=== PATIENT | male | born 1975 | race Two or more races ===

== ENCOUNTER 2021-01-29 01:59 | Emergency (ER) | payer BC ==
[2021-01-29] MEDS ORDERED: Sodium Chloride 0.9% 2.5 ML Syringe FLUSH PRN (02:11)
[2021-01-29] MEDS ORDERED: Sodium Chloride 0.9% 10 ML Syringe FLUSH PRN (02:11)
--- NOTE | 2021-01-29 02:15 | EDM.PDOC ---
ED HPI GENERAL MEDICAL PROBLEM - General Chief Complaint: Chest Pain Stated Complaint: PAIN IN RIB Time Seen by Provider: 01/29/21 02:05 - History of Present Illness INITIAL COMMENTS - FREE TEXT/NARRATIVE: 46-year-old male with a history of hypertension presents with now resolved chest pain. Patient had approximately 3 to 4 hours of tearing chest pain radiating to the back associated with diaphoresis and a sense of dread. Patient reports that he had the feeling that something bad might be happening with his family. He called his family and everybody was fine his symptoms and started to resolve. He presents now asymptomatic. He had no shortness of breath he had no abdominal pain no syncope or near syncope. He has no prior history of similar episodes. No clear exacerbating or alleviating factors the pain was substernal and radiated through to the back and was a tearing sensation. - Related Data Allergies Allergy/AdvReac Type Severity Reaction Status Date / Time No Known Allergies Allergy Verified 01/29/21 02:04 Past Medical History HEENT History: Reports: None Cardiovascular History: Reports: High Cholesterol, Hypertension Respiratory History: Reports: None Gastrointestinal History: Reports: None Genitourinary History: Reports: None Musculoskeletal History: Reports: None Neurological History: Reports: None Psychiatric History: Reports: None Endocrine/Metabolic History: Reports: None Hematologic History: Reports: None Immunologic History: Reports: None Oncologic (Cancer) History: Reports: None Dermatologic History: Reports: None - Infectious Disease History Infectious Disease History: Reports: Chicken Pox - Past Surgical History Head Surgeries/Procedures: Reports: None Social & Family History - Family History Family Medical History: No Pertinent Family History - Recreational Drug Use Recreational Drug Use: No ED ROS GENERAL - Review of Systems Review Of Systems: See Below Free Text/Narrative/Comment: General: No fever. ENT: No sore throat. Neck: No neck stiffness. Respiratory: No shortness of breath. Cardiac: Per HPI Gastrointestinal: No nausea, vomiting or abdominal pain. Musculoskeletal: No myalgias/arthralgias. Neurologic: No headache. ED EXAM, GENERAL - Physical Exam Exam: See Below Free Text/Narrative:: General Appearance: No acute distress, appears comfortable Skin: No rash HEENT: Normocephalic/atraumatic, sclera anicteric, mucous membranes moist Neck: Normal range of motion Chest and Lungs: Bilateral breath sounds, clear to auscultation Cardiovascular: Regular rate and rhythm, no murmur Abdomen: Soft, non-tender Back: Normal Musculoskeletal: No edema or tenderness Neurologic: Awake, alert, no obvious deficits, moving all extremities Psychiatric: Appropriate, cooperative #1 Interpretation EKG Date: 01/29/21 Time: 02:25 EKG Interpretation Comments: Sinus rhythm rate of 76 minimally prolonged NE interval at 213 no acute ischemia otherwise unremarkable EKG Course - Vital Signs Last Recorded V/S: Last Vital Signs Temp 98.3 F 01/29/21 02:04 Pulse 74 01/29/21 05:44 Resp 19 01/29/21 05:44 BP 159/98 H 01/29/21 05:44 Pulse Ox 95 01/29/21 05:44 - Orders/Labs/Meds Orders: Active Orders 24 hr Category Date Time Status CTA Abd Pelv w Cont [CT] Stat Exams 01/29/21 02:18 Taken Sodium Chloride 0.9% [Saline Flush] Med 01/29/21 02:11 Active 10 ml FLUSH ASDIRECTED PRN Sodium Chloride 0.9% [Saline Flush] Med 01/29/21 02:11 Active 2.5 ml FLUSH ASDIRECTED PRN Saline Lock Insert [OM.PC] Stat Oth 01/29/21 02:11 Ordered Medication Orders Sodium Chloride (Sodium Chloride 0.9% 10 Ml Syringe) 10 ml FLUSH ASDIRECTED PRN PRN Reason: Keep Vein Open Last Admin: 01/29/21 02:24 Dose: 10 ml Documented by: SHERICE Sodium Chloride (Sodium Chloride 0.9% 2.5 Ml Syringe) 2.5 ml FLUSH ASDIRECTED PRN PRN Reason: Keep Vein Open Last Admin: 01/29/21 02:24 Dose: 2.5 ml Documented by: SHERICE Labs: Laboratory Tests 01/29/21 01/29/21 01/29/21 Range/Units 02:20 02:20 05:46 WBC 10.42 (4.0-11.0) K/uL RBC 5.24 (4.50-5.90) M/uL Hgb 13.8 (13.0-17.0) g/dL Hct 40.5 (38.0-50.0) % MCV 77.3 L (80.0-98.0) fL MCH 26.3 L (27.0-32.0) pg MCHC 34.1 (31.0-37.0) g/dL RDW Std Deviation 41.5 (28.0-62.0) fl RDW Coeff of [place] 15 (11.0-15.0) % Plt Count 247 (150-400) K/uL MPV 9.60 (7.40-12.00) fL Neut % (Auto) 65.5 (48.0-80.0) % Lymph % (Auto) 25.1 (16.0-40.0) % Bee % (Auto) 7.3 (0.0-15.0) % Eos % (Auto) 1.9 (0.0-7.0) % Baso % (Auto) 0.2 (0.0-1.5) % Neut # (Auto) 6.8 H (1.4-5.7) K/uL Lymph # (Auto) 2.6 H (0.6-2.4) K/uL Bee # (Auto) 0.8 (0.0-0.8) K/uL Eos # (Auto) 0.2 (0.0-0.7) K/uL Baso # (Auto) 0.0 (0.0-0.1) K/uL Nucleated RBC % 0.0 /100WBC Nucleated RBCs # 0 K/uL Sodium 141 (136-148) mmol/L Potassium 3.7 (3.5-5.1) mmol/L Chloride 104 (98-107) mmol/L Carbon Dioxide 26.3 (21.0-32.0) mmol/L BUN 14 (7.0-18.0) mg/dL Creatinine 1.0 (0.8-1.3) mg/dL Est Cr Clr Drug Dosing 101.31 mL/min Estimated GFR (MDRD) > 60.0 ml/min Glucose 130 H (74-106) mg/dL Calcium 8.3 L (8.5-10.1) mg/dL Total Bilirubin 0.3 (0.2-1.0) mg/dL AST 15 (15-37) IU/L ALT 21 (14-63) IU/L Alkaline Phosphatase 158 H (46-116) U/L Troponin I < 0.050 < 0.050 (0.000-0.056) ng/mL Total Protein 8.1 (6.4-8.2) g/dL Albumin 3.5 (3.4-5.0) g/dL Globulin 4.6 H (2.6-4.0) g/dL Albumin/Globulin Ratio 0.8 L (0.9-1.6) Lipase 109 (73-393) U/L Meds: Medications Generic Name Dose Route Start Last Admin Trade Name Freq PRN Reason Stop Dose Admin Sodium Chloride 10 ml 01/29/21 02:11 01/29/21 02:24 Sodium Chloride 0.9% 10 Ml Syringe FLUSH 10 ml ASDIRECTED PRN Administration Keep Vein Open Sodium Chloride 2.5 ml 01/29/21 02:11 01/29/21 02:24 Sodium Chloride 0.9% 2.5 Ml Syringe FLUSH 2.5 ml ASDIRECTED PRN Administration Keep Vein Open Discontinued Medications Generic Name Dose Route Start Last Admin Trade Name Freq PRN Reason Stop Dose Admin Iopamidol 100 ml 01/29/21 03:48 01/29/21 03:50 Iopamidol 755 Mg/Ml 100 Ml Bottle IVPUSH 01/29/21 03:49 100 ml ONETIME ONE Administration Ondansetron HCl 4 mg 01/29/21 02:50 01/29/21 02:58 Ondansetron 4 Mg/2 Ml Sdv IVPUSH 01/29/21 02:51 4 mg ONETIME ONE Administration Departure - Departure Time of Disposition: 06:21 Disposition: Home, Self-Care 01 Condition: Good Clinical Impression: Chest pain - Discharge Information *PRESCRIPTION DRUG MONITORING PROGRAM REVIEWED*: Not Applicable *COPY OF PRESCRIPTION DRUG MONITORING REPORT IN PATIENT GERALDINE: Not Applicable Instructions: Nonspecific Chest Pain, Adult Referrals: PCP,Not In Area [Primary Care Provider] - Forms: ED Department Discharge Additional Instructions: Your labs today were normal so was your EKG. Your evaluation showed no sign of a heart attack and the CT scan showed no signs of any problems with your aorta or within your chest. You do have a number of gallstones. However, these did not have anything to do with your presentation today. I encourage you to follow-up with your primary care doctor. Though we can say that you did not have a heart attack tonight we cannot say that you do not have coronary artery disease you have a number of risk factors for this. For this reason it is important you follow-up with your primary care doctor. If you do not have a primary care doctor I encourage you to follow-up with one of the primary care clinics listed below. [facility] - Primary Care [address] [place] [id number] [facility] [address] [place] [id number] The following information is given to patients seen in the emergency department who are being discharged to home. This information is to outline your options for follow-up care. We provide all patients seen in our emergency department with a follow-up referral. The need for follow-up, as well as the timing and circumstances, are variable depending upon the specifics of your emergency department visit. If you don't have a primary care physician on staff, we will provide you with a referral. We always advise you to contact your personal physician following an emergency department visit to inform them of the circumstance of the visit and for follow-up with them and/or the need for any referrals to a consulting specialist. The emergency department will also refer you to a specialist when appropriate. This referral assures that you have the opportunity for follow-up care with a specialist. All of these measure are taken in an effort to provide you with optimal care, which includes your follow-up. Under all circumstances we always encourage you to contact your private physician who remains a resource for coordinating your care. When calling for follow-up care, please make the office aware that this follow-up is from your recent emergency room visit. If for any reason you are refused follow-up, please contact the [facility] Emergency Department at and asked to speak to the emergency department charge nurse. Sepsis Event Note (ED) - Focused Exam Vital Signs: Vital Signs Temp Pulse Resp BP Pulse Ox 01/29/21 05:44 74 19 159/98 H 95 01/29/21 04:40 75 18 143/85 H 95 01/29/21 03:54 64 19 161/100 H 96 01/29/21 02:58 82 18 162/109 H 98 01/29/21 02:04 98.3 F 80 19 184/108 H 98 - My Orders Last 24 Hours: My Active Orders 01/29/21 02:11 Sodium Chloride 0.9% [Saline Flush] 10 ml FLUSH ASDIRECTED PRN Sodium Chloride 0.9% [Saline Flush] 2.5 ml FLUSH ASDIRECTED PRN Saline Lock Insert [OM.PC] Stat 01/29/21 02:18 CTA Abd Pelv w Cont [CT] Stat - Assessment/Plan Last 24 Hours: My Active Orders 01/29/21 02:11 Sodium Chloride 0.9% [Saline Flush] 10 ml FLUSH ASDIRECTED PRN Sodium Chloride 0.9% [Saline Flush] 2.5 ml FLUSH ASDIRECTED PRN Saline Lock Insert [OM.PC] Stat 01/29/21 02:18 CTA Abd Pelv w Cont [CT] Stat Assessment:: 46-year-old male presents with now resolved chest pain. The hypertension the tearing pain radiating to the back raises the possibility of aortic dissection. He is very stable and well-appearing at this time but I think it needs to be definitively excluded with CTA. ACS considered as well again symptoms have resolved but this certainly possible EKG and troponin pending. Pneumonia pneumothorax felt much less likely chest x-ray pending CBC CMP and lipase pending as well.
[2021-01-29 02:47] LABS: BLOOD UREA NITROGEN,BUN 14 mg/dL (7.0-18.0); CARBON DIOXIDE,CO2 26.3 mmol/L (21.0-32.0); CHLORIDE,CL 104 mmol/L (98-107); GLUCOSE RANDOM 130 mg/dL (74-106); LIPASE 109 U/L (73-393); POTASSIUM,K 3.7 mmol/L (3.5-5.1); SODIUM,NA 141 mmol/L (136-148)
[2021-01-29] MEDS ORDERED: Ondansetron 4 MG/2 ML SDV IVPUSH ONE (02:50)
[2021-01-29] MEDS ORDERED: Iopamidol 755 Mg/ML 100 ML Bottle IVPUSH ONE (03:48)
--- NOTE | 2021-01-29 03:48 | CR ---
INDICATION: Shortness of breath TECHNIQUE: Chest radiograph 1 view COMPARISON: None FINDINGS: The sensitivity and specificity of the exam are severely limited by the patient`s body habitus and lordotic technique. Mediastinum: The mediastinum is normal in appearance. The heart silhouette is normal in size and morphology. Lung: Both lungs are unremarkable in appearance with very small lung volumes. No sign of pleural effusion seen. No pneumothorax is identified. Bone and Soft tissue: Unremarkable for age. IMPRESSION: 1. No acute cardiopulmonary disease is seen. Dictated by: Cosme Pak MD @ 01/29/2021 03:45:46 (Electronically Signed)
--- NOTE | 2021-01-29 04:32 | CT ---
INDICATION: Chest and abdominal pain TECHNIQUE: CT chest, abdomen, and pelvis with and without i.v. contrast during the arterial phase. Coronal and sagittal reformats were obtained. CONTRAST: 100 mL Isovue 370 COMPARISON: None FINDINGS: CHEST: Cardiovascular: The heart has an unremarkable appearance and size. No evidence of intramural hematoma, aneurysm, or dissection in the thoracic aorta. Evaluation of the pulmonary arteries are limited by suboptimal contrast bolus timing. Mediastinum: No mass or adenopathy seen. Lung: Both lungs are unremarkable in appearance. Pleura and pericardium: No sign of pleural effusion seen. No significant pericardial effusion is present. Chest wall and axilla: No mass or adenopathy seen. Bone: Unremarkable for age. No acute osseous injuries seen. ABDOMEN/PELVIS: Liver: Unremarkable. Spleen: Unremarkable. Pancreas: Unremarkable. Gallbladder: There are 2 calcified gallstones are present with mild gallbladder wall thickening seen. Kidney: Unremarkable. No kidney or ureteral stones or obstruction seen. Adrenal: Unremarkable. Bowel: Unremarkable. The appendix is normal in appearance and size. Vascular: Unremarkable. Lymph: Unremarkable. Peritoneum: Unremarkable. No pneumoperitoneum is seen. No significant ascites is noted. Pelvis: Unremarkable. Soft tissue: Unremarkable. Bone: Unremarkable for age. No acute osseous injuries seen. IMPRESSIONS: 1. No CT evidence of intramural hematoma or aortic dissection seen. 2. There are 2 calcified gallstones are present with mild gallbladder wall thickening seen. If there is focal pain or tenderness in the right upper quadrant, evaluation with ultrasound may be helpful to exclude acute cholecystitis. Dictated by Cosme Pak MD @ 01/29/2021 4:31:38 AM Please note that all CT scans at this facility use dose modulation, iterative reconstruction, and/or weight-based dosing when appropriate to reduce radiation dose to as low as reasonably achievable. Dictated by: Cosme Pak MD @ 01/29/2021 04:31:55 (Electronically Signed)
--- NOTE | 2021-01-30 11:39 | CT ---
EXAM DATE: 01/29/21 PATIENT'S AGE: 46 Patient: DARREN MARTINEZ Facility: [facility] Site . Site : [id number] Study: CT-Chest/Abd/Pelvis Dissection-01/29/2021 3:45:51 AM Ordering Physician: Pro Lazaro Final Report: INDICATION: Chest and abdominal pain TECHNIQUE: CT chest, abdomen, and pelvis with and without i.v. contrast during the arterial phase. Coronal and sagittal reformats were obtained. CONTRAST: 100 mL Isovue 370 COMPARISON: None FINDINGS: CHEST: Cardiovascular: The heart has an unremarkable appearance and size. No evidence of intramural hematoma, aneurysm, or dissection in the thoracic aorta. Evaluation of the pulmonary arteries are limited by suboptimal contrast bolus timing. Mediastinum: No mass or adenopathy seen. Lung: Both lungs are unremarkable in appearance. Pleura and pericardium: No sign of pleural effusion seen. No significant pericardial effusion is present. Chest wall and axilla: No mass or adenopathy seen. Bone: Unremarkable for age. No acute osseous injuries seen. ABDOMEN/PELVIS: Liver: Unremarkable. Spleen: Unremarkable. Pancreas: Unremarkable. Gallbladder: There are 2 calcified gallstones are present with mild gallbladder wall thickening seen. Kidney: Unremarkable. No kidney or ureteral stones or obstruction seen. Adrenal: Unremarkable. Bowel: Unremarkable. The appendix is normal in appearance and size. Vascular: Unremarkable. Lymph: Unremarkable. Peritoneum: Unremarkable. No pneumoperitoneum is seen. No significant ascites is noted. Pelvis: Unremarkable. Soft tissue: Unremarkable. Bone: Unremarkable for age. No acute osseous injuries seen. IMPRESSIONS: 1. No CT evidence of intramural hematoma or aortic dissection seen. 2. There are 2 calcified gallstones are present with mild gallbladder wall thickening seen. If there is focal pain or tenderness in the right upper quadrant, evaluation with ultrasound may be helpful to exclude acute cholecystitis. Dictated by Cosme Pak MD @ 01/29/2021 4:31:38 AM Please note that all CT scans at this facility use dose modulation, iterative reconstruction, and/or weight-based dosing when appropriate to reduce radiation dose to as low as reasonably achievable. Dictated by: Cosme Pak MD @ 01/29/2021 04:31:55 Signed by: Cosme Pak MD @01/29/2021 4:31:55 AM (Electronic Signature) Report Signed by Proxy. DAVE
== END 2021-01-29 06:40 | disposition home or self-care (01) ==
LOC: MW.ED 01:59
DX: R07.81 Pleurodynia (principal); I10 Essential (primary) hypertension
CPT/HCPCS: 36415; 71045; 71275; 74174; 80053; 83690; 84484; 85025; 93005; 96374; 99285; J2405; Q9967